=== PATIENT | female | born 1980 | race Caucasian/White ===

== ENCOUNTER 2017-10-14 19:41 | Observation (INO) | payer OTHER, MEDICAID ==
[~2017-10-14] VITALS: Ht 154.9 cm; Wt 65.0 kg
[~2017-10-14 19:41] MED LIST: AUGM875T PO; BUPR150T3 PO; BUTA1CAP PO; D-10TAB; DIAZ2TAB PO; GABA600T PO; LORA-400 PO; NORC5TAB PO; ONDAN4 PO; PSEU1LIQ2 PO; TRAZ100 PO; TRAZ100T5 PO; TRIA1SPR6 EACH NARE; VALT500T PO; VESI5TAB PO; VESI5TAB2 PO
[2017-10-14 20:21] VITALS: BP 133/74; PULSE 114; RESP 18; TEMP 97.5; O2SAT 96
[2017-10-14 20:30] VITALS: BP 135/89; PULSE 127; RESP 28; O2SAT 96
[2017-10-14] MEDS ORDERED: LORazepam 2 MG/ML VIAL ONE (20:33)
[2017-10-14 20:37] VITALS: PULSE 107; RESP 24; O2SAT 96
--- NOTE | 2017-10-14 20:44 | PD ---
HPI Chief Complaint: Neuro Symptoms/ Deficits Time Seen by Provider: 20:25 Travel History International Travel<30 days: No Contact w/Intl Traveler<30days: No Traveled to known affect area: No History of Present Illness HPI Patient is a 37-year-old female with history of cerebral palsy, bilateral knee arthritis, anxiety, depression, headaches as well as asthma, presents to the emergency room with complaints of 1 hour worth of muscle spasms. Patient reports that she went out to dinner with her friend tootie, reports that 1 hour prior to the emergency room, her whole body started to spasm. Patient reports that her arms tensed up and she had body spasm. reports that her body shakes when this happens. Patient reports that she had similar symptoms in December 2015 and was admitted for 10 days for workup of this. Patient reports that at that time, she was told that spasms were due to Haldol medication. Reports that she has had a full neurological workup, no one could tell her why she had these episodes of muscle spasms. Patient has not had a muscle spasm symptoms like that until today. Reports that symptoms come on and then resolve after a few minutes. Patient does feel lightheaded and dizzy, reports that her whole body feels tight, reports that she does feel nauseous and has been vomiting. Patient denies any chest pain or shortness of breath, denies any abdominal pain, patient is wheelchair-bound and unable to ambulate. Denies fever/chills. PFSH Past Medical History Arthritis: Yes Asthma: No Autoimmune Disease: No Anxiety: Yes (generalized anxiety disorder) Depression: Yes Heart Rhythm Problems: No Cancer: No Cardiovascular Problems: No Cerebral Palsy: Yes High Cholesterol: No Chemotherapy: No Chest Pain: No Congestive Heart Failure: No COPD: No Cerebrovascular Accident: Yes (s/p surgery) Diabetes: No Diminished Hearing: No Endocrine: No Gastrointestinal Disorders: Yes (PROBIOTICS AND FIBER POWDER TO REGULATE BOWELS ) GERD: Yes Genitourinary: No Headaches: Yes Hepatitis: No Hiatal Hernia: Yes Immune Disorder: No Implanted Vascular Access Dvce: Yes Kidney Stones: No Musculoskeletal: Yes (scoliosis) Neurologic: Yes (cerebral palsy) Psychiatric: Yes Reproductive: No Respiratory: Yes (bronchitis twice a year) Immunizations Current: Yes Migraines: Yes Radiation Therapy: No Renal Failure: No Seizures: Yes (long time ago) Sickle Cell Disease: No Sleep Apnea: No Thyroid Disease: No Ulcer: Yes (resolved) Tetanus Vaccination: < 5 Years Influenza Vaccination: No ?: Not LMP: 09/17/2017 : 0 Para: 0 Past Surgical History Abdominal Surgery: No AICD: No Arteriovenous Shunt: No Body Medical Devices: ureter shunts Cardiac Surgery: No Ear Surgery: No Endocrine Surgery: No Eye Surgery: No Genitourinary Surgery: Yes (kidney-7 stents and reconstruction on right) Gynecologic Surgery: No Insulin Pump: No Joint Replacement: No Oral Surgery: No Pacemaker: No Thoracic Surgery: No Other Surgery: Yes (july and october 2012[facility] ) Social History Alcohol Use: No Tobacco Use: No Substance Use: No Allergies-Medications (Allergen,Severity, Reaction): Coded Allergies: adhesive (Unverified Allergy, Severe, REDNESS,RASHES, 10/14/17) PAPER TAPE OK haloperidol (Unverified Allergy, Unknown, 10/14/17) latex (Unverified Adverse Reaction, Mild, 10/14/17) Reported Meds & Prescriptions Reported Meds & Active Scripts Active [place] (Hydrocodone-Acetaminophen) 5-325 mg Tab 1 Tab PO Q6H PRN Augmentin (Amoxicillin-Clavulanate) 875-125 mg Tab 875 Mg PO BID 10 Days not for use in CrCl <30 ml/min. Nasacort Allergy 24Hr Nasal (Triamcinolone Nasal) 55 Mcg/Act Spr 2 [place] EACH NARE DAILY 14 Days Claritin-D 24 HR (Loratadine-Pseudoephedrine 24 HR) 10-240 Mg Tab 1 Tab PO DAILY Hydrocodone Bitartrate/Ch 60-4-5 mg/5Ml (Pseudoephed-Cpm W/ Hydrocod) 1 Tab 1 Tab PO Q8HR PRN Ondansetron Odt4 M2 4 Mg Tab 4 Mg PO Q6H PRN Vesicare (Solifenacin) 5 Mg Tab 5 Mg PO HS * SWALLOW TABLET WHOLE * Trazodone HCl 100 Mg Tab 200 Mg PO HS Reported D-1000 (Cholecalciferol) 1,000 Unit Tab 2,000 Bupropion HCl ER 24 HR (Bupropion HCl) 150 Mg Tab 150 Mg PO DAILY Fioricet (Jvwumezozm-Rdozqfpwrypnn-Emiduysc) 50-300-40 Mg Cap 1 Cap PO Q4H PRN Valtrex (Valacyclovir HCl) 500 Mg Tab 500 Mg PO HS Trazodone HCl 100 Mg Tab 200 PO HS PRN Vesicare (Solifenacin) 5 Mg Tab 5 Mg PO HS Gabapentin 600 Mg Tab 600 Mg PO BID Diazepam 2 Mg Tab 2 Mg PO HS PRN Review of Systems General / Constitutional: No: Fever Eyes: No: Visual changes HENT: Positive: Headaches, Lightheadedness Cardiovascular: No: Chest Pain or Discomfort Respiratory: No: Shortness of Breath Gastrointestinal: No: Abdominal Pain Genitourinary: No: Dysuria Musculoskeletal: No: Pain Skin: No Rash Neurologic: Positive: Weakness, Dizziness, Headache Psychiatric: No: Depression Endocrine: No: Polydipsia Hematologic/Lymphatic: No: Easy Bruising Physical Exam Narrative GENERAL: moderate distress SKIN: Focused skin assessment warm/dry. HEAD: Atraumatic. Normocephalic. EYES: Pupils equal and round. No scleral icterus. No injection or drainage. ENT: No nasal bleeding or discharge. Mucous membranes pink and moist. NECK: Trachea midline. No JVD. CARDIOVASCULAR: Regular rate and rhythm. No murmur appreciated. RESPIRATORY: No accessory muscle use. Clear to auscultation. Breath sounds equal bilaterally. GASTROINTESTINAL: Abdomen soft, non-tender, nondistended. Hepatic and splenic margins not palpable. MUSCULOSKELETAL: No obvious deformities. No clubbing. No cyanosis. No edema. NEUROLOGICAL: Awake and alert. Patient appears contracted to upper extremities b /l. Patient unable to move lower extremities due to CP. Normal speech. PSYCHIATRIC: Anxious mood and affect; insight and judgment normal. Data Data Last Documented VS Vital Signs Date Time Temp Pulse Resp B/P (MAP) Pulse Ox O2 Delivery O2 Flow Rate FiO2 10/14/17 20:37 107 24 96 Room Air 10/14/17 20:21 97.5 Orders Orders Lorazepam Inj (Ativan Inj) (10/14/17 20:45) Lorazepam Inj (Ativan Inj) (10/14/17 20:33) Electrocardiogram (10/14/17 20:33) Prothrombin Time / Inr (Pt) (10/14/17 20:33) Act Partial Throm Time (Ptt) (10/14/17 20:33) Complete Blood Count With Diff (10/14/17 20:33) Comprehensive Metabolic Panel (10/14/17 20:33) Creatine Kinase (Cpk) (10/14/17 20:33) Drug Screen, Random Urine (10/14/17 20:33) Troponin I (10/14/17 20:33) Urinalysis - C+S If Indicated (10/14/17 20:33) Ct Brain W/O Iv Contrast(Rout) (10/14/17 20:33) Chest, Single Ap (10/14/17 20:33) Ecg Monitoring (10/14/17 20:33) Iv Access Insert/Monitor (10/14/17 20:33) Oximetry (10/14/17 20:33) Cath For Specimen (10/14/17 20:33) Blood Glucose (10/14/17 20:33) Sodium Chloride 0.9% Flush (Ns Flush) (10/14/17 20:45) Ed Urine Pregnancytest Poc (10/14/17 20:33) Lipase (10/14/17 20:33) Metoclopramide Inj (Reglan Inj) (10/14/17 20:45) Sodium Chlor 0.9% 1000 Ml Inj (Ns 1000 M (10/14/17 20:45) Labs Laboratory Tests Test 10/14/17 20:35 10/14/17 21:55 White Blood Count 7.9 TH/MM3 Red Blood Count 4.75 MIL/MM3 Hemoglobin 13.6 GM/DL Hematocrit 40.9 % Mean Corpuscular Volume 86.1 FL Mean Corpuscular Hemoglobin 28.8 PG Mean Corpuscular Hemoglobin Concent 33.4 % Red Cell Distribution Width 15.2 % Platelet Count 300 TH/MM3 Mean Platelet Volume 8.4 FL Neutrophils (%) (Auto) 78.6 % Lymphocytes (%) (Auto) 10.5 % Monocytes (%) (Auto) 8.8 % Eosinophils (%) (Auto) 1.2 % Basophils (%) (Auto) 0.9 % Neutrophils # (Auto) 6.2 TH/MM3 Lymphocytes # (Auto) 0.8 TH/MM3 Monocytes # (Auto) 0.7 TH/MM3 Eosinophils # (Auto) 0.1 TH/MM3 Basophils # (Auto) 0.1 TH/MM3 CBC Comment DIFF FINAL Differential Comment Prothrombin Time 10.4 SEC Prothromb Time International Ratio 1.0 RATIO Activated Partial Thromboplast Time 24.0 SEC Blood Urea Nitrogen 10 MG/DL Creatinine 0.86 MG/DL Random Glucose 110 MG/DL Total Protein 7.4 GM/DL Albumin 4.0 GM/DL Calcium Level 9.3 MG/DL Alkaline Phosphatase 82 U/L Aspartate Amino Transf (AST/SGOT) 14 U/L Alanine Aminotransferase (ALT/SGPT) 23 U/L Total Bilirubin 0.2 MG/DL Sodium Level 140 MEQ/L Potassium Level 4.5 MEQ/L Chloride Level 109 MEQ/L Carbon Dioxide Level 20.9 MEQ/L Anion Gap 10 MEQ/L Estimat Glomerular Filtration Rate 74 ML/MIN Total Creatine Kinase 63 U/L Troponin I LESS THAN 0.02 NG/ML Lipase 173 U/L MDM Medical Decision Making Medical Screen Exam Complete: Yes Emergency Medical Condition: Yes Medical Record Reviewed: Yes Interpretation(s) EKG at 2055: Sinus tach at 107bpm, qt/qtc: 328/391, no acute st or t wave changes Vital Signs Date Time Temp Pulse Resp B/P (MAP) Pulse Ox O2 Delivery O2 Flow Rate FiO2 10/14/17 20:30 129 10/14/17 20:30 127 28 135/89 (104) 96 Room Air 10/14/17 20:21 97.5 114 18 133/74 (93) 96 Differential Diagnosis medication reaction, electrolyte abnormalities, seizures, infection, intracranial hemorrhage, arrhythmia Narrative Course Patient is a 37-year-old female who presents the emergency room for evaluation of muscle spasms which began 1 hour prior to arrival to the emergency room. During the course of the patients emergency department visit, the patients history, examination, and differential diagnosis were reviewed with the patient. The patient was placed on a radiation monitor with oximetry and frequent blood pressure monitoring. The patient had an IV access obtained and blood work sent for analysis. The patient was initially provided IVF, 2mg of IV ativan, IV reglan The patients laboratory studies were reviewed and remarkable for Laboratory Tests Test 10/14/17 20:35 White Blood Count 7.9 TH/MM3 (4.0-11.0) Red Blood Count 4.75 MIL/MM3 (4.00-5.30) Hemoglobin 13.6 GM/DL (11.6-15.3) Hematocrit 40.9 % (35.0-46.0) Mean Corpuscular Volume 86.1 FL (80.0-100.0) Mean Corpuscular Hemoglobin 28.8 PG (27.0-34.0) Mean Corpuscular Hemoglobin Concent 33.4 % (32.0-36.0) Red Cell Distribution Width 15.2 % (11.6-17.2) Platelet Count 300 TH/MM3 (150-450) Mean Platelet Volume 8.4 FL (7.0-11.0) Neutrophils (%) (Auto) 78.6 % (16.0-70.0) Lymphocytes (%) (Auto) 10.5 % (9.0-44.0) Monocytes (%) (Auto) 8.8 % (0.0-8.0) Eosinophils (%) (Auto) 1.2 % (0.0-4.0) Basophils (%) (Auto) 0.9 % (0.0-2.0) Neutrophils # (Auto) 6.2 TH/MM3 (1.8-7.7) Lymphocytes # (Auto) 0.8 TH/MM3 (1.0-4.8) Monocytes # (Auto) 0.7 TH/MM3 (0-0.9) Eosinophils # (Auto) 0.1 TH/MM3 (0-0.4) Basophils # (Auto) 0.1 TH/MM3 (0-0.2) CBC Comment DIFF FINAL Differential Comment Prothrombin Time 10.4 SEC (9.8-11.6) Prothromb Time International Ratio 1.0 RATIO Activated Partial Thromboplast Time 24.0 SEC (24.3-30.1) Blood Urea Nitrogen 10 MG/DL (7-18) Creatinine 0.86 MG/DL (0.50-1.00) Random Glucose 110 MG/DL (74-106) Total Protein 7.4 GM/DL (6.4-8.2) Albumin 4.0 GM/DL (3.4-5.0) Calcium Level 9.3 MG/DL (8.5-10.1) Alkaline Phosphatase 82 U/L (45-117) Aspartate Amino Transf (AST/SGOT) 14 U/L (15-37) Alanine Aminotransferase (ALT/SGPT) 23 U/L (10-53) Total Bilirubin 0.2 MG/DL (0.2-1.0) Sodium Level 140 MEQ/L (136-145) Potassium Level 4.5 MEQ/L (3.5-5.1) Chloride Level 109 MEQ/L (98-107) Carbon Dioxide Level 20.9 MEQ/L (21.0-32.0) Anion Gap 10 MEQ/L (5-15) Estimat Glomerular Filtration Rate 74 ML/MIN (>89) Total Creatine Kinase 63 U/L (26-192) Troponin I LESS THAN 0.02 NG/ML Lipase 173 U/L (73-393) Radiology studies were reviewed and remarkable for Last Impressions Head CT 10/14/172032 Signed Impressions: CONCLUSION: Unremarkable study except for questionable mild periventricular wh ite matter lucency chronic in nature not significantly changed. Chest X-Ray 10/14/172032 Signed Impressions: CONCLUSION: No acute cardiopulmonary disease. Large hiatal hernia. Patient reevaluated, patient with relief of symptoms after IV Ativan was administered. Patient will be admitted to the hospital for further observation and for neurology consult. Case reviewed with Dr. Arce, patient's PCP - would like patient admitted to [facility] at this time. Physician Communication Physician Communication Case reviewed with Dr. Bennett Diagnosis Primary Impression: Muscle spasm Admitting Information Admitting Physician Requests: Observation Laquita Lobo DO Oct 14, 2017 20:44
[2017-10-14] MEDS ORDERED: METOCLOPRAMIDE HCL 10 MG/2 ML VIAL IV PUSH ONE (20:45)
[2017-10-14] MEDS ORDERED: LORazepam 2 MG/ML VIAL IV PUSH ONE (20:45)
[2017-10-14] MEDS ORDERED: SODIUM CHLOR 0.9% 1000 ML INJ 1,000 ML IV ONE (20:45)
[2017-10-14] MEDS ORDERED: SODIUM CHLORIDE 0.9% FLUSH 10 ML FLUSH IVF PRN (20:45)
[2017-10-14 21:14] LABS: AST (GOT) 14 U/L (15-37); BICARBONATE 20.9 MEQ/L (21.0-32.0); BLOOD UREA NITROGEN 10 MG/DL (7-18); CALCIUM 9.3 MG/DL (8.5-10.1); CHLORIDE 109 MEQ/L (98-107); CREATININE 0.86 MG/DL (0.50-1.00); GLOMERULAR FILTRATION RATE 74 ML/MIN (>89); GLUCOSE,RANDOM 110 MG/DL (74-106); SODIUM (NA) 140 MEQ/L (136-145)
[2017-10-14 21:15] LABS: ALT (GPT) 23 U/L (10-53)
--- NOTE | 2017-10-14 21:15 | RADRPT ---
EXAM DATE: 10/14/2017 8:47 PM EDT AGE/SEX: 37 years / Female INDICATIONS: Vomiting CLINICAL DATA: This is the patient's initial encounter. Patient reports that signs and symptoms have been present for 1 day and indicates a pain score of 0/10. MEDICAL/SURGICAL HISTORY: . Cerebrovascular disease. Seizures. Cerebral palsy None. [place] [facility] [place] . FINDINGS: The lungs are clear without infiltrate, nodule, or mass. There is no appreciable pleural effusion f or technique. Heart and mediastinum are unremarkable. Large hiatal hernia is seen. CONCLUSION: No acute cardiopulmonary disease. Large hiatal hernia. Electronically signed by: Marcello Perea MD 10/14/2017 9:13 PM EDT
[2017-10-14 21:19] LABS: ALKALINE PHOSPHATASE 82 U/L (45-117); TOTAL BILIRUBIN ADULT 0.2 MG/DL (0.2-1.0); TOTAL PROTEIN 7.4 GM/DL (6.4-8.2); TROPONIN I LESS THAN 0.02 NG/ML (0.02-0.05)
[2017-10-14 21:25] LABS: AUTOMATED NEUTROPHIL # 6.2 TH/MM3 (1.8-7.7); BASOPHIL # 0.1 TH/MM3 (0-0.2); BASOPHIL % 0.9 % (0.0-2.0); EOSINOPHIL # 0.1 TH/MM3 (0-0.4); EOSINOPHIL % 1.2 % (0.0-4.0); HEMATOCRIT 40.9 % (35.0-46.0); HEMOGLOBIN 13.6 GM/DL (11.6-15.3); LYMPH % 10.5 % (9.0-44.0); LYMPHOCYTE # 0.8 TH/MM3 (1.0-4.8); MEAN CELL VOLUME 86.1 FL (80.0-100.0); MEAN CORPUSCULAR HEMOGLOBIN 28.8 PG (27.0-34.0); MEAN CORPUSCULAR HGB CONC 33.4 % (32.0-36.0); MEAN PLATELET VOLUME 8.4 FL (7.0-11.0); MONO % 8.8 % (0.0-8.0); MONOCYTE # 0.7 TH/MM3 (0-0.9); NEUT % 78.6 % (16.0-70.0); PLATELET COUNT 300 TH/MM3 (150-450); RED BLOOD COUNT 4.75 MIL/MM3 (4.00-5.30); RED CELL DISTRIBUTION WIDTH 15.2 % (11.6-17.2); WHITE BLOOD COUNT 7.9 TH/MM3 (4.0-11.0)
[2017-10-14 21:27] LABS: PROTHROMBIN TIME - PATIENT 10.4 SEC (9.8-11.6)
--- NOTE | 2017-10-14 21:38 | RADRPT ---
EXAM DATE: 10/14/2017 9:24 PM EDT AGE/SEX: 37 years / Female INDICATIONS: Weakness. CLINICAL DATA: This is the patient's initial encounter. Patient reports that signs and symptoms have been present for 1 day and indicates a pain score of 0/10. MEDICAL/SURGICAL HISTORY: . Cerebral palsy. Seizures. . RADIATION DOSE: 56.35 CTDI (mGy) COMPARISON: [facility] [place] BRAIN W/O CONTRAST, 01/02/2016. . TECHNIQUE: CT of the head without contrast. Using automated exposure control and adjustment of the mA and/or kV according to patient size, radiation dose was kept as low as reasonably achievable to ob tain optimal diagnostic quality images. FINDINGS: There is no evidence for intracranial hemorrhage, mass effect, mass lesions, edema, or extr a-axial fluid collections. The visualized bony structures appear intact. The ventricles are normal size for the patient's age. There are no signs of acute infarction for technique. There is question of mild degree of periventricular white matter lucency bilaterally chronic in nature. CONCLUSION: Unremarkable study except for questionable mild periventricular white matter lucency chr onic in nature not significantly changed. Electronically signed by: Marcello Perea MD 10/14/2017 9:36 PM EDT
[2017-10-14 22:21] LABS: BACTERIA, URINE FEW /hpf; BILIRUBIN, URINE NEG (NEG); BLOOD, URINE NEG (NEG); GLUCOSE,URINE NEG (NEG); KETONE, URINE NEG (NEG); MUCUS URINE FEW /lpf (OCC); NITRITE,URINE NEG (NEG); SQUAMOUS EPITHELIAL CELL URINE 5 /hpf (0-5); URINE COLOR YELLOW (YELLW/STRAW); URINE LEUKOCYTE ESTERASE NEG (NEG)
[2017-10-14] MEDS ORDERED: SODIUM CHLORIDE 0.9% FLUSH 10 ML FLUSH IV FLUSH PRN (23:30)
[2017-10-15] MEDS: HEPARIN SODIUM - SQ 10,000 UNITS/ML VIAL SQ SCH ×2 (00:33→11:29)
[2017-10-15 00:59] VITALS: BP 97/59; PULSE 86; RESP 16; TEMP 98.2; O2SAT 96
--- NOTE | 2017-10-15 01:15 | HHI.HP ---
[facility] Service [facility] Primary Care Physician Naman Arce MD Admission Diagnosis Muscle spasms Diagnoses: Travel History International Travel<30 Days: No Contact w/Intl Traveler <30 Da: No Traveled to Known Affected Are: No History of Present Illness 37-year-old female with a past medical history significant for cerebral palsy presents to the emergency department for the evaluation of spasms. The patient reports that approximately 6:30 PM she had emesis 1 followed by severe, full body spasms with shaking and numbness to her arms/legs and back. The patient also reports word finding difficulty with a right-sided facial droop. She had a similar episode 2 years ago and it was found to be an adverse reaction to Haldol. She has not had any repeat episodes until now. She denies taking Haldol or any other antipsychotics. The patient reports her symptoms have mostly resolved at this time although she still endorses nausea. No fevers/ chills. No chest pain or shortness of breath. No abdominal pain. Review of Systems Except as stated in HPI: all other systems reviewed are Neg Past Family Social History Past Medical History Cerebral palsy Past Surgical History Heel cord release 2 Hamstring release 2 Hip adductor 2 Reported Medications Reported Meds & Active Scripts Active [place] (Hydrocodone-Acetaminophen) 5-325 mg Tab 1 Tab PO Q6H PRN Augmentin (Amoxicillin-Clavulanate) 875-125 mg Tab 875 Mg PO BID 10 Days not for use in CrCl <30 ml/min. Nasacort Allergy 24Hr Nasal (Triamcinolone Nasal) 55 Mcg/Act Spr 2 [place] EACH NARE DAILY 14 Days Claritin-D 24 HR (Loratadine-Pseudoephedrine 24 HR) 10-240 Mg Tab 1 Tab PO DAILY Hydrocodone Bitartrate/Ch 60-4-5 mg/5Ml (Pseudoephed-Cpm W/ Hydrocod) 1 Tab 1 Tab PO Q8HR PRN Ondansetron Odt4 M2 4 Mg Tab 4 Mg PO Q6H PRN Vesicare (Solifenacin) 5 Mg Tab 5 Mg PO HS * SWALLOW TABLET WHOLE * Trazodone HCl 100 Mg Tab 200 Mg PO HS Reported D-1000 (Cholecalciferol) 1,000 Unit Tab 2,000 Bupropion HCl ER 24 HR (Bupropion HCl) 150 Mg Tab 150 Mg PO DAILY Fioricet (Xolqitxhbc-Ghfwhmqortjsz-Qqgpqwxc) 50-300-40 Mg Cap 1 Cap PO Q4H PRN Valtrex (Valacyclovir HCl) 500 Mg Tab 500 Mg PO HS Trazodone HCl 100 Mg Tab 200 PO HS PRN Vesicare (Solifenacin) 5 Mg Tab 5 Mg PO HS Gabapentin 600 Mg Tab 600 Mg PO BID Diazepam 2 Mg Tab 2 Mg PO HS PRN Allergies: Coded Allergies: adhesive (Unverified Allergy, Severe, REDNESS,RASHES, 10/14/17) PAPER TAPE [place] haloperidol (Unverified Allergy, Unknown, 10/14/17) latex (Unverified Adverse Reaction, Mild, 10/14/17) Family History Mother with diabetes mellitus and hypertension Social History Negative for alcohol, tobacco and illicit drugs Physical Exam Vital Signs Vital Signs Date Time Temp Pulse Resp B/P (MAP) Pulse Ox O2 Delivery O2 Flow Rate FiO2 10/15/17 00:59 98.2 86 16 97/59 (72) 96 10/14/17 20:37 107 24 96 Room Air 10/14/17 20:30 129 10/14/17 20:30 127 28 135/89 (104) 96 Room Air 10/14/17 20:21 97.5 114 18 133/74 (93) 96 Physical Exam GENERAL: female lying in bed SKIN: No rashes, ecchymoses or lesions. Cool and dry. HEAD: Atraumatic. Normocephalic. No temporal or scalp tenderness. EYES: Pupils equal round and reactive. Extraocular motions intact. No scleral icterus. No injection or drainage. ENT: Nose without bleeding, purulent drainage or septal hematoma. Throat without erythema, tonsillar hypertrophy or exudate. Uvula midline. Airway patent. NECK: Trachea midline. No JVD or lymphadenopathy. Supple, nontender, no meningeal signs. CARDIOVASCULAR: Regular rate and rhythm without murmurs, gallops, or rubs. RESPIRATORY: Clear to auscultation. Breath sounds equal bilaterally. No wheezes , rales, or rhonchi. GASTROINTESTINAL: Abdomen soft, non-tender, nondistended. No hepato-splenomegaly , or palpable masses. No guarding. MUSCULOSKELETAL: Extremities without clubbing, cyanosis, or edema. No joint tenderness, effusion, or edema noted. No calf tenderness. NEUROLOGICAL: Awake and alert. Cranial nerves II through XII intact. Motor and sensory grossly within normal limits. Normal speech. Laboratory Laboratory Tests Test 10/14/17 20:35 10/14/17 21:55 White Blood Count 7.9 Red Blood Count 4.75 Hemoglobin 13.6 Hematocrit 40.9 Mean Corpuscular Volume 86.1 Mean Corpuscular Hemoglobin 28.8 Mean Corpuscular Hemoglobin Concent 33.4 Red Cell Distribution Width 15.2 Platelet Count 300 Mean Platelet Volume 8.4 Neutrophils (%) (Auto) 78.6 Lymphocytes (%) (Auto) 10.5 Monocytes (%) (Auto) 8.8 Eosinophils (%) (Auto) 1.2 Basophils (%) (Auto) 0.9 Neutrophils # (Auto) 6.2 Lymphocytes # (Auto) 0.8 Monocytes # (Auto) 0.7 Eosinophils # (Auto) 0.1 Basophils # (Auto) 0.1 CBC Comment DIFF FINAL Differential Comment Prothrombin Time 10.4 Prothromb Time International Ratio 1.0 Activated Partial Thromboplast Time 24.0 Blood Urea Nitrogen 10 Creatinine 0.86 Random Glucose 110 Total Protein 7.4 Albumin 4.0 Calcium Level 9.3 Alkaline Phosphatase 82 Aspartate Amino Transf (AST/SGOT) 14 Alanine Aminotransferase (ALT/SGPT) 23 Total Bilirubin 0.2 Sodium Level 140 Potassium Level 4.5 Chloride Level 109 Carbon Dioxide Level 20.9 Anion Gap 10 Estimat Glomerular Filtration Rate 74 Total Creatine Kinase 63 Troponin I LESS THAN 0.02 Lipase 173 Urine Color YELLOW Urine Turbidity HAZY Urine pH 6.0 Urine Specific [place] 1.019 Urine Protein NEG Urine Glucose (UA) NEG Urine Ketones NEG Urine Occult Blood NEG Urine Nitrite NEG Urine Bilirubin NEG Urine Urobilinogen LESS THAN 2.0 Urine Leukocyte Esterase NEG Urine RBC 1 Urine WBC 1 Urine Squamous Epithelial Cells 5 Urine Bacteria FEW Urine Mucus FEW Microscopic Urinalysis Comment CATH-CULTURE IND Date/Time Source Procedure Growth Status 10/14/17 21:55 Urine Catheterized Urine Urine Culture Pending Received Result Diagram: 10/14/17203410/14/172034 Caprini VTE Risk Assessment Caprini VTE Risk Assessment: No/Low Risk (score <= 1) Caprini Risk Assessment Model Point Value = 1 Point Value = 2 Point Value = 3 Point Value = 5 Age 41-60 Minor surgery BMI > 25 kg/m2 Swollen legs Varicose veins or History of unexplained or recurrent spontaneous Oral contraceptives or hormone replacement Sepsis (< 1 month) Serious lung disease, including pneumonia (< 1 month) Abnormal pulmonary function Acute myocardial infarction Congestive heart failure (< 1 month) History of inflammatory bowel disease Medical patient at bed rest Age 61-74 Arthroscopic surgery Major open surgery (> 45 min) Laparoscopic surgery (> 45 min) Malignancy Confined to bed (> 72 hours) Immobilizing plaster cast Central venous access Age >= 75 History of VTE Family history of VTE Factor V Leiden Prothrombin [id number] Lupus anticoagulant Anticardiolipin antibodies Elevated serum homocysteine Heparin-induced thrombocytopenia Other congenital or acquired thrombophilia Stroke (< 1 month) Elective arthroplasty Hip, pelvis, or leg fracture Acute spinal cord injury (< 1 month) Prophylaxis Regimen Total Risk Factor Score Risk Level Prophylaxis Regimen 0-1 Low Early ambulation 2 Moderate Order ONE of the following: *Sequential Compression Device (SCD) *Heparin 5000 units SQ BID 3-4 Higher Order ONE of the following medications: *Heparin 5000 units SQ TID *Enoxaparin/Lovenox 40 mg SQ daily (WT < 150 kg, CrCl > 30 mL/min) *Enoxaparin/Lovenox 30 mg SQ daily (WT < 150 kg, CrCl > 10-29 mL/min) *Enoxaparin/Lovenox 30 mg SQ BID (WT < 150 kg, CrCl > 30 mL/min) AND/OR *Sequential Compression Device (SCD) 5 or more Highest Order ONE of the following medications: *Heparin 5000 units SQ TID (Preferred with Epidurals) *Enoxaparin/Lovenox 40 mg SQ daily (WT < 150 kg, CrCl > 30 mL/min) *Enoxaparin/Lovenox 30 mg SQ daily (WT < 150 kg, CrCl > 10-29 mL/min) *Enoxaparin/Lovenox 30 mg SQ BID (WT < 150 kg, CrCl > 30 mL/min) AND *Sequential Compression Device (SCD) Assessment and Plan Assessment and Plan Assessment/plan: 1. Numbness/muscle spasm/facial droop Symptoms have resolved at this time Neurology consulted, appreciate assistance MRI/MRA, carotid ultrasound pending 2. Cerebral palsy Patient with history of cerebral palsy FEN N.p.o. Electrolytes: Monitor and replete as needed Heparin Laquita Bennett MD Oct 15, 2017 01:15
--- NOTE | 2017-10-15 05:08 | EKG ---
Date Performed: 10/14/2017 Time Performed: 20:56:37 PTAGE: 37 years EKG: SINUS TACHYCARDIA LOW QRS VOLTAGE IN PRECORDIAL LEADS PATTERN CONSISTENT WITH PULMONARY DIS EASE LEFT ANTERIOR FASCICULAR BLOCK ABNORMAL ECG No significant change from prior electrocardiogram. DOCTOR: Pa Vyas Interpretating Date/Time 10/15/2017 05:08:01
[2017-10-15 05:19] VITALS: BP 101/62; PULSE 92; RESP 16; TEMP 98.3; O2SAT 93
[2017-10-15 07:05] LABS: AUTOMATED NEUTROPHIL # 2.8 TH/MM3 (1.8-7.7); BASOPHIL % 0.9 % (0.0-2.0); EOSINOPHIL # 0.1 TH/MM3 (0-0.4); EOSINOPHIL % 3.1 % (0.0-4.0); HEMATOCRIT 34.5 % (35.0-46.0); HEMOGLOBIN 11.5 GM/DL (11.6-15.3); LYMPH % 23.8 % (9.0-44.0); LYMPHOCYTE # 1.1 TH/MM3 (1.0-4.8); MEAN CELL VOLUME 86.6 FL (80.0-100.0); MEAN CORPUSCULAR HEMOGLOBIN 28.8 PG (27.0-34.0); MEAN CORPUSCULAR HGB CONC 33.3 % (32.0-36.0); MEAN PLATELET VOLUME 8.2 FL (7.0-11.0); MONO % 10.5 % (0.0-8.0); MONOCYTE # 0.5 TH/MM3 (0-0.9); NEUT % 61.7 % (16.0-70.0); PLATELET COUNT 246 TH/MM3 (150-450); RED BLOOD COUNT 3.99 MIL/MM3 (4.00-5.30); RED CELL DISTRIBUTION WIDTH 15.2 % (11.6-17.2); WHITE BLOOD COUNT 4.6 TH/MM3 (4.0-11.0)
[2017-10-15 07:19] LABS: BICARBONATE 22.4 MEQ/L (21.0-32.0); CALCIUM 8.4 MG/DL (8.5-10.1); CREATININE 0.7 MG/DL (0.50-1.00)
[2017-10-15 08:00] VITALS: BP 92/59; PULSE 94; RESP 16; TEMP 98.5; O2SAT 95
[2017-10-15] MEDS: TRIMETHOBENZAMIDE INJ 200 MG/2 ML VIAL IM PRN ×2 (08:30→15:48)
[2017-10-15] MEDS ORDERED: SODIUM CHLORIDE 0.9% FLUSH 10 ML FLUSH IV FLUSH SCH (09:00)
--- NOTE | 2017-10-15 09:38 | RADRPT ---
EXAM DATE: 10/15/2017 9:21 AM EDT AGE/SEX: 37 years / Female INDICATIONS: Seizures. Weakness. CLINICAL DATA: This is the patient's initial encounter. Patient reports that signs and symptoms have been present for 2 days and indicates a pain score of 0/10. MEDICAL/SURGICAL HISTORY: . Cerebral palsy. . Hamstring xs 2/hip adductors. [place] [facility] [place]15/2017. . TECHNIQUE: 3D [id number] MRA was performed. Source images, multiplanar STS MIP, and 3D volum e MIP reconstructions were reviewed. FINDINGS: There is excellent visualization of the major intracranial arteries out to the second-order branch ve ssels. Anterior circulation: Mild luminal irregularity is identified in the proximal cerebral vessels. Sourc e images and a straight slight motion artifact. There are no significant steno-occlusive changes. The posterior cerebral arteries originate from the anterior circulation. The A1 segment of the right anterior cerebral artery is hypoplastic. There is no evidence of aneurysm, vascular malformation or vascular displacement. Posterior circulation: The left vertebral artery is dominant. Basilar artery is small but not unexpec tanya since the posterior cerebral arteries originate from the anterior circulation. There is no eviden ce of aneurysm or vascular malformation. CONCLUSION: 1. Mild luminal irregularity in the proximal cerebral vessels which may indicate the presence of mil d vasculopathy. 2. No evidence of significant steno-occlusive disease, aneurysm or vascular malformation. 3. Developmental variant with both posterior cerebral arteries originate from the anterior circulati on. Electronically signed by: Trace Diggs MD 10/15/2017 9:37 AM EDT
--- NOTE | 2017-10-15 09:43 | RADRPT ---
EXAM DATE: 10/15/2017 9:25 AM EDT AGE/SEX: 37 years / Female INDICATIONS: Seizures. Weakness. CVA. CLINICAL DATA: This is the patient's initial encounter. Patient reports that signs and symptoms have been present for 2 days and indicates a pain score of 0/10. MEDICAL/SURGICAL HISTORY: . Cerebral palsy. . Hamstring xs 2/hip adductors. COMPARISON: No prior exams available for comparison. TECHNIQUE: Multiplanar, multisequence examination of the brain was performed without contrast. FINDINGS: Cerebrum: The ventricles are normal for age. No evidence of midline shift, mass lesion, hemorrhage or acute infarction. No extraaxial fluid collections are seen. The pituitary gland and suprasellar cistern are normal in configuration. White Matter: Mild periventricular T2 hyperintensities are noted. Posterior Fossa: The cerebellum and brainstem are intact. The 4th ventricle is midline. The cerebel lopontine angle is unremarkable. The cerebellar tonsils are normal in position. Diffusion Imaging: No focal areas of restricted diffusion are seen. No evidence of acute infarction . Extracranial: The visualized portions of the orbits and paranasal sinuses are unremarkable. CONCLUSION: 1. 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 2. No evidence of acute infarct, hemorrhage, mass or edema. Electronically signed by: Trace Diggs MD 10/15/2017 9:42 AM EDT
--- NOTE | 2017-10-15 10:19 | RADRPT ---
EXAM DATE: 10/15/2017 10:06 AM EDT AGE/SEX: 37 years / Female INDICATIONS: Right side facial droop. CLINICAL DATA: This is the patient's initial encounter. Patient reports that signs and symptoms have been present for 2 days and indicates a pain score of 0/10. MEDICAL/SURGICAL HISTORY: Gastroesophageal reflux disease. Cerebrovascular accident. History of seizures. Cerebral palsy. Hiatal hernia. . Kidney stent with reconstruction on right. Hip abductor. Hamstring release. COMPARISON: No prior exams available for comparison. VELOCITY PARAMETERS: ICA/CCA Ratio: Right 1.2 , Left 1.0 ICA: Right 93 cm/sec, Left 75 cm/sec CCA: Right 78 cm/sec, Left 74 cm/sec ECA: Right 98 cm/sec, Left 58 cm/sec Vertebral: Right 52 cm/sec antegrade, Left 52 cm/sec antegrade FINDINGS: Right Carotid: No significant stenosis is visualized. The waveforms are within normal limits. Left Carotid: No significant stenosis is visualized. The waveforms are within normal limits. Other: None. CONCLUSION: 1. Right Internal Carotid Artery: No significant stenosis or atherosclerotic plaque is visualized. 2. Left Internal Carotid Artery: No significant stenosis or atherosclerotic plaque is visualized. 3. Antegrade flow in both vertebral arteries. Electronically signed by: Trace Diggs MD 10/15/2017 10:18 AM EDT
[2017-10-15 12:00] VITALS: BP 112/67; PULSE 89; RESP 16; TEMP 98.3; O2SAT 96
[2017-10-15] MEDS ORDERED: PHEN37.54 PO (15:25)
[2017-10-15] MEDS ORDERED: DEXT50CP PO (15:25)
--- NOTE | 2017-10-15 15:51 | PD.CONS ---
History of Present Illness Service Neurology Consult Requested By Medical for spasms Primary Care Physician Naman Arce MD History of Present Illness 37-year-old female with a past medical history significant for cerebral palsy presents to the emergency department for the evaluation of spasms. History chronic anxiety spasms wheelchair-bound since due to cerebral palsy. Denies any history of seizures Was recently started on stimulants couple weeks ago. She is feeling better now moderately anxious. Takes Xanax 3 times a day. Also takes Fioricet as needed for headaches in addition to gabapentin for pain. Review of Systems Except as stated in HPI: all other systems reviewed are Neg Past Family Social History Past Medical History Cerebral palsy Past Surgical History Heel cord release 2 Hamstring release 2 Hip adductor 2 Allergies: Coded Allergies: adhesive (Unverified Allergy, Severe, REDNESS,RASHES, 10/14/17) PAPER TAPE [place] haloperidol (Unverified Allergy, Unknown, 10/14/17) latex (Unverified Adverse Reaction, Mild, 10/14/17) Family History Mother with diabetes mellitus and hypertension Social History Negative for alcohol, tobacco and illicit drugs Review of Systems All other ROS: ROS reviewed as documented in chart Past Family Social History Allergies: Coded Allergies: adhesive (Unverified Allergy, Severe, REDNESS,RASHES, 10/14/17) PAPER TAPE [place] haloperidol (Unverified Allergy, Unknown, 10/14/17) latex (Unverified Adverse Reaction, Mild, 10/14/17) Active Ordered Medications Current Medications Medications (Trade) Dose Ordered Sig/Hema Route Start Time Stop Time Status Last Admin (NS Flush) 2 ml UNSCH PRN IV FLUSH 10/14/17 23:30 (NS Flush) 2 ml BID IV FLUSH 10/15/17 09:00 10/15/17 07:54 (Heparin Inj) 5,000 units Q12H SQ 10/14/17 23:30 10/15/17 11:29 (Tigan Inj) 200 mg Q6H PRN IM 10/14/17 23:45 10/15/17 08:30 Exam I&O / VS 10/15/17 10/15/17 10/16/17 15:00 23:00 07:00 # Voids 1 Vital Signs Date Time Temp Pulse Resp B/P (MAP) Pulse Ox O2 Delivery O2 Flow Rate FiO2 10/15/17 12:00 98.3 89 16 112/67 (82) 96 10/15/17 08:00 98.5 94 16 92/59 (70) 95 10/15/17 05:19 98.3 92 16 101/62 (75) 93 10/15/17 00:59 98.2 86 16 97/59 (72) 96 10/14/17 20:37 107 24 96 Room Air 10/14/17 20:30 129 10/14/17 20:30 127 28 135/89 (104) 96 Room Air 10/14/17 20:21 97.5 114 18 133/74 (93) 96 Respiratory: Lungs CTA, Non-labored respirations, Symmetrical expansion Cardiology: Normal rate, Normal peripheral perfusion, Regular Rhythm Musculoskeletal: Swelling Exam Comments Awake alert oriented 3 pleasant fluent articulate reduced fine finger movements of the upper extremities able to raise both upper extremities to gravity slightly increased tone bilateral paraparesis with increased tone some clonus at the ankles extensor plantar Review/Management Diagnosis/Plan: (1) CP (cerebral palsy) ICD Codes: G80.9 - Cerebral palsy, unspecified Status: Chronic Plan: Chronic cerebral palsy with spastic diplegia since with new onset worsening spasm type of activity This may been induced by recent medication addition of stimulants; may have a mild serotonin syndrome versus alternate psychotropic med reaction MR brain scan demonstrates chronic mild paravertebral white matter changes. MRA [place] no significant vaso-occlusive disease. Carotid ultrasound no significant vaso-occlusive disease. Recommendations Exam is improved Hold off on stimulants Scans are stable Can be discharged from neurologic standpoint follow-up with her primary care physician and us as needed discussed with medical (2) Depression ICD Codes: F32.9 - Major depressive disorder, single episode, unspecified Status: Chronic Plan: Antidepressants Therapy (3) Muscle spasm ICD Codes: M62.838 - Other muscle spasm Status: Acute Plan: Muscle relaxers Problem Qualifiers (1) CP (cerebral palsy): Qualified Codes: G80.1 - Spastic diplegic cerebral palsy Homero Gary MD Oct 15, 2017 15:51
[2017-10-15 16:00] VITALS: BP 109/65; PULSE 86; RESP 16; TEMP 98.5; O2SAT 94
--- NOTE | 2017-10-15 16:29 | HHI.FF ---
Face to Face Verification Diagnosis: (1) Muscle spasticity (2) Impaired mobility and activities of daily living (3) CP (cerebral palsy) (4) Polypharmacy Physical Therapy Order: Evaluate and Treat Home Health Nursing Order: Medication education-adverse effect Instructions: She will need home health nurse for medication management. I have seen patient Autumn Julio on 10/15/17. My clinical findings support the need for the requested home health care services because: Med compliance is questionable Limited ability to care for self I certify that my clinical findings support that this patient is homebound because: Unsteady gait/balance Stas Madrid MD Oct 15, 2017 16:29
== END 2017-10-15 18:15 | disposition home or self-care (01) ==
LOC: NEPC 19:41 → NEDA 22:22 → NEPHCDU 10-15 00:02
PROVIDERS: ADMIT Internal Medicine; ATTEND Internal Medicine
DX: M62.838 Other muscle spasm (principal); R29.810 Facial weakness; R20.0 Anesthesia of skin; G80.1 Spastic diplegic cerebral palsy; R11.0 Nausea; F32.9 Major depressive disorder, single episode, unspecified; I44.4 Left anterior fascicular block; R00.0 Tachycardia, unspecified; R94.31 Abnormal electrocardiogram [ECG] [EKG]; F41.1 Generalized anxiety disorder; J45.909 Unspecified asthma, uncomplicated; K21.9 Gastro-esophageal reflux disease without esophagitis; M17.0 Bilateral primary osteoarthritis of knee; M41.9 Scoliosis, unspecified; Z86.73 Personal history of transient ischemic attack (TIA), and cerebral infarction without residual deficits
CPT/HCPCS: 70450; 70544; 70551; 71045; 80048; 80053; 80307; 81001; 82550; 83690; 84484; 84703; 85025; 85610; 85730; 87086; 93005; 93880; 96372; 96374; 96375; 99285; G0378; J1644; J2060; J2765; J3250; J7030